=== PATIENT | female | born 1960 | race Caucasian/White ===

== ENCOUNTER 2017-03-31 09:12 | Emergency (ER) | payer OTHER ==
--- NOTE | ~2017-03-31 | CR2 ---
[facility] A Service of [facility] & [facility] RADIOLOGY TEXT RESULTS PATIENT: LEAH COMER LOCATION: [facility] : 58 UNIT #: [id number] AGE: [address]: Susan Wolfe MD SEX: F ORDER DR: [id number] [facility] [address] [place], [place] [address] [id number] MR#: [id number] Acc #: [id number] NAME: LEAH COMER : 1960 SEX: F STUDY DATE/TIME: 03/31/2017 10:15 UNIT: [facility] ROOM: STUDY DESCRIPTION: CR Abdomen Acute Series Attending Physician: Susan Wolfe M.D. Ordering Physician: Susan Wolfe M.D. [facility] This report is preliminary unless electronic signature is present EXAM Acute abdomen series, 03/31/17 INDICATIONS Abdominal pain for 3 days. COMPARISON None. FINDINGS A PA view of the chest and a flat and upright view of the abdomen were obtained. The bowel gas pattern is normal. The bones are normal. The lungs are clear. The heart size is normal. IMPRESSION Normal acute abdomen series. Dictated by... Eliceo Francisco M.D. THIS IS AN ELECTRONICALLY VERIFIED REPORT Eliceo Francisco M.D. at 04/01/2017 7:26 AM FEL/joel TD: 03/31/2017 17:14 JOB #: [id number] MEDICAL IMAGING REPORT Page 1 of 1 COPY
[~2017-03-31 09:12] MED LIST: AMLODIPINE BESYL5 MG PO; AUGMENTIN875 MG DOB; CLARITIN10 M3 PO; DICLOFENAC TOP; FLONASE 0.05% N16 G1 IH; LIDO TOP; LIDOCREAM5 GM TOP; [UNRECOGNIZED DRUG - OTHER] TOP; [UNRECOGNIZED DRUG - OTHER] TOP
[2017-03-31 09:44] LABS: URINE SOURCE CLEAN CATCH
[2017-03-31 09:49] LABS: URINE APPEARANCE CLOUDY; URINE BLOOD NEG (NEG); URINE COLOR DK YELLOW; URINE GLUCOSE NEG (NEG); URINE KETONE TRACE (NEG); URINE LEUKOCYTE ESTERASE 1+ (NEG); URINE NITRATE NEG (NEG); URINE PROTEIN 2+ (NEG); URINE SPECIFIC GRAVITY 1.032 (1.003-1.035)
[2017-03-31 09:52] LABS: BASOPHIL# 0.1 X10e3 (0-0.3); BASOPHIL% 1.3 % (0-2.5); CULTURE INDICATED? YES; EOSINOPHIL# 0.3 X10e3 (0-0.7); HEMATOCRIT 40.2 % (35.0-45.0); HEMOGLOBIN 13.1 gm/dL (12.0-16.0); LYMPHOCYTE# 2.5 X10e3 (1.0-3.5); LYMPHOCYTE% 27.7 % (17.0-45.0); MEAN CELL VOLUME 86.1 FL (83-96); MEAN CORPUSCULAR HGB CONC 32.5 g/dL (30-36); MEAN PLATELET VOLUME 8.1 FL (6.5-11.5); MONOCYTE# 0.7 X10e3 (0-1.0); MONOCYTE% 7.9 % (3.0-12.0); NEUTROPHIL# 5.4 X10e3 (1.5-7.1); NEUTROPHIL% 60.1 % (40-75); PLATELET COUNT 291 X10e3 (140-420); RED BLOOD COUNT 4.66 X10e (3.90-5.30); RED CELL DISTRIBUTION WIDTH 14.4 % (11.0-15.5); URINE BACTERIA AUWI NEG (NEGATIVE); URINE SQUAMOUS EPITHELIAL CELL FEW /[HPF]
[2017-03-31 10:02] LABS: DIFF IND NO
[2017-03-31 10:09] LABS: URINE BILIRUBIN NEG (NEG)
[2017-03-31 10:12] LABS: U HYALINE CASTS AUWI 50-100 /[LPF]; URINE AMORPHOUS SEDIMENT AMORP URATES; URINE GRANULAR CAST 0-2 /[HPF]; URINE MUCUS PRESENT; URINE WHITE BLOOD CELL CAST 0-2 /[HPF]; URINE YEAST PRESENT
[2017-03-31 10:21] LABS: ALBUMIN SERUM 4.2 g/dL (3.5-5.0); BILIRUBIN, DIRECT 0.1 mg/dL (0.0-0.2); BILIRUBIN,INDIRECT 0.3 mg/dL (0.0-0.9); BILIRUBIN,TOTAL 0.4 mg/dL (0.2-2.0); CALCIUM SERUM 9.4 mg/dL (8.4-10.2); CREATININE SERUM 1.1 mg/dL (0.6-1.4); GLOM FILT RATE Estimated 55.7 mL/min (>60); POTASSIUM 4.5 mmol/L (3.5-5.1); PROTEIN TOTAL SERUM 7.6 g/dL (6.0-8.3)
== END 2017-03-31 11:54 | disposition home or self-care (01) ==
LOC: CED 09:12
PROVIDERS: Student in an Organized Health Care Education/Training Program
DX: K59.00 Constipation, unspecified (principal); I10 Essential (primary) hypertension; J45.909 Unspecified asthma, uncomplicated; Z79.899 Other long term (current) drug therapy
CPT/HCPCS: 36415; 74022; 80048; 80076; 81003; 82150; 83690; 85025; 87086; 96361; 96374; 96375; 99284; C9113; J2405

== ENCOUNTER 2017-06-21 05:35 | Emergency (ER) | payer OTHER ==
[~2017-06-21] VITALS: Ht 160 cm; Wt 83.9 kg
--- NOTE | ~2017-06-21 | US67 ---
[facility] A Service of [facility] & [facility] RADIOLOGY TEXT RESULTS PATIENT: LEAH COMER LOCATION: [facility] : 58 UNIT #: [id number] AGE: [address]: William Zeng MD SEX: F ORDER DR: [id number] [facility] [address] [place], [place] [address] [id number] E MR#: [id number] Acc #: [id number] NAME: LEAH COMER : 1960 SEX: F STUDY DATE/TIME: 06/21/2017 8:37 UNIT: [facility] ROOM: STUDY DESCRIPTION: Gallbladder Attending Physician: William Zeng M.D. Ordering Physician: William Zeng M.D. [facility] Care Phys[facility]PORT This report is preliminary unless electronic signature is present EXAM Gallbladder ultrasound, 06/21/2017. HISTORY Right upper quadrant abdominal pain for 1 month. FINDINGS The liver is homogeneous in echotexture demonstrates no cystic or solid mass lesions. The intra and extrahepatic bile ducts are not dilated. The gallbladder contains minimal sludge but there is no evidence of cholelithiasis, gallbladder wall thickening, or pericholecystic fluid. The common duct measures 3 mm. The pancreas is poorly visualized due to overlying bowel gas. The right kidney is normal. IMPRESSION 1. Minimal gallbladder sludge. No evidence of cholelithiasis. 2. Poor visualization of the pancreas due to overlying bowel gas. Dictated by... Srinivasa Estrada M.D. THIS IS AN ELECTRONICALLY VERIFIED REPORT Srinivasa Estrada M.D. at 06/24/2017 7:32 AM PATRICIA/noemi TD: 06/21/2017 17:09 JOB #: [id number] MEDICAL IMAGING REPORT Page 1 of 1 COPY
[2017-06-21 07:39] LABS: BASOPHIL# 0.1 X10e3 (0-0.3); DIFF IND NO; EOSINOPHIL# 0.1 X10e3 (0-0.7); EOSINOPHIL% 0.9 % (0.0-7.0); HEMATOCRIT 34.7 % (35.0-45.0); HEMOGLOBIN 11.7 gm/dL (12.0-16.0); LYMPHOCYTE# 2.2 X10e3 (1.0-3.5); LYMPHOCYTE% 18.4 % (17.0-45.0); MEAN CELL VOLUME 84.4 FL (83-96); MEAN CORPUSCULAR HEMOGLOBIN 28.4 PG (28-34); MEAN CORPUSCULAR HGB CONC 33.6 g/dL (30-36); MEAN PLATELET VOLUME 7.9 FL (6.5-11.5); MONOCYTE% 8.1 % (3.0-12.0); NEUTROPHIL# 8.6 X10e3 (1.5-7.1); NEUTROPHIL% 71.6 % (40-75); PLATELET COUNT 276 X10e3 (140-420); RED BLOOD COUNT 4.11 X10e (3.90-5.30); RED CELL DISTRIBUTION WIDTH 13.5 % (11.0-15.5); WHITE BLOOD COUNT 12.1 X10e3 (4.0-10.5)
[2017-06-21 08:26] LABS: ALBUMIN SERUM 3.7 g/dL (3.5-5.0); BILIRUBIN, DIRECT 0.1 mg/dL (0.0-0.2); BILIRUBIN,INDIRECT 0.7 mg/dL (0.0-0.9); BILIRUBIN,TOTAL 0.8 mg/dL (0.2-2.0); BUN/CREATININE RATIO 21.66; CALCIUM SERUM 9.4 mg/dL (8.4-10.2); CREATININE SERUM 1.2 mg/dL (0.6-1.4); GLOM FILT RATE Estimated 50.1 mL/min (>60); POTASSIUM 4.6 mmol/L (3.5-5.1)
[2017-06-21 09:29] LABS: URINE SOURCE CLEAN CATCH
[2017-06-21 09:33] LABS: URINE APPEARANCE CLEAR; URINE BILIRUBIN NEG (NEG); URINE BLOOD NEG (NEG); URINE COLOR DK YELLOW; URINE GLUCOSE NEG (NEG); URINE KETONE 1+ (NEG); URINE LEUKOCYTE ESTERASE 2+ (NEG); URINE NITRATE NEG (NEG); URINE PROTEIN 1+ (NEG); URINE SPECIFIC GRAVITY 1.028 (1.003-1.035)
[2017-06-21 09:35] LABS: CULTURE INDICATED? YES; URINE BACTERIA AUWI NEG (NEGATIVE); URINE SQUAMOUS EPITHELIAL CELL FEW /[HPF]; UWBCS1 AUWI 25-50 (0-5)
[2017-06-21 09:44] LABS: URBCS1 AUWI 0-2 /[HPF] (0-2); URINE MUCUS PRESENT; URINE TRANSITIONAL EPI CELLS OCCAS /[HPF]
== END 2017-06-21 10:40 | disposition home or self-care (01) ==
LOC: CED 05:35
PROVIDERS: Emergency Medicine
DX: K29.00 Acute gastritis without bleeding (principal); I10 Essential (primary) hypertension; J45.909 Unspecified asthma, uncomplicated
CPT/HCPCS: 36415; 76705; 80048; 80076; 81003; 82150; 83690; 85025; 87086; 99284